=== PATIENT | male | born 1990 | race Hispanic/Latino ===

== ENCOUNTER 2020-10-28 23:38 | Emergency (ER) | payer OTHER ==
[~2020-10-28] VITALS: Ht 175.3 cm; Wt 123.8 kg
[2020-10-28] MEDS ORDERED: IBUPROFEN 600 MG TAB PO STA (23:50)
[2020-10-28] MEDS ORDERED: IBUPROFEN 600 MG TAB ONE (23:59)
== END 2020-10-29 00:20 | disposition home or self-care (01) ==
LOC: ER 23:51
DX: U07.1 COVID-19 (principal)
CPT/HCPCS: 99282